=== PATIENT | male | born 1990 | race Caucasian/White ===

== ENCOUNTER 2020-02-01 17:17 | Outpatient (REF) | payer SELFPAY | END 2020-02-01 17:18 | disposition home or self-care (01) | LOC: HO.LAB 17:17 | PROVIDERS: Visit Provider Internal Medicine | DX: Z20.828 Contact with and (suspected) exposure to other viral communicable diseases (principal) | CPT/HCPCS: C9803; U0003 ==

== ENCOUNTER 2021-02-23 11:33 | Outpatient (REF) | payer OTHER, SELFPAY ==
[2021-02-23 13:07] LABS: COVID-19 Test Negative (Negative); IDNOW Serial# 55D5AD1C
== END 2021-02-23 11:34 | disposition home or self-care (01) ==
LOC: HO.LAB 11:33
PROVIDERS: Visit Provider Internal Medicine
DX: Z20.822 Contact with and (suspected) exposure to COVID-19 (principal)
CPT/HCPCS: 36415; 87635; C9803

== ENCOUNTER 2022-12-24 09:36 | Emergency (ER) | payer OTHER, SELFPAY ==
[2022-12-24 09:42] VITALS: BP 114/84; PULSE 78; RESP 18; TEMP 36.8; O2SAT 100; BMI 22.1
[2022-12-24 09:59] VITALS: BP 133/79; PULSE 82; RESP 16; TEMP 36.8; O2SAT 95
--- NOTE | 2022-12-24 10:06 | PC.NURSE ---
vss and up to date. medication and woodslamp placed bedside for provider to use. pt comes in today d/t getting foreign substance in eyes bilaterally during work exposure. 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 redness noted in eyes bilaterally. no swelling noted at this time. pt awaiting to be seen by provider.
--- NOTE | 2022-12-24 10:33 | ED_ITS ---
HPI - Eye Problem General Chief complaint: Eye Problems Stated complaint: L Eye Work Injury 12/23/22 Time Seen by Provider: 12/24/22 09:48 Source: patient Mode of arrival: ambulatory Limitations: no limitations History of Present Illness HPI Narrative: patient is a 32 old male who presents emergency department for evaluation after an eye injury. He states that while working yesterday was using a paint spray gun when he accidentally got some of the spray in to his eyes. He used an eye wash station immediately afterwards. He has a foreign body sensation to the left eye, and feels as though something is scratching it. Right eye feels dry but denies that foreign body sensation. He denies vision changes, discharge, inability to open the eye. He denies wearing contact lenses Related Data Previous Rx's Medication Instructions Recorded ofloxacin 0.3 % eye drops 2 drp ophthalmic (eye) QID 5 days 12/24/22 #5 mL Allergies Allergy/AdvReac Type Severity Reaction Status Date / Time No Known Allergies Allergy Verified 12/24/22 09:45 Review of Systems Review of Systems: Yes all other systems are reviewed and are negative [facility] Past Medical History Attestation statement: The following information was validated with the patient. Source: old records reviewed Social History Social History Advance Directives: No Advance Directives Information Provided: No Physical Exam Vital Signs: Vital Signs: Last Vital Signs Temp 98.2 F 12/24/22 09:59 Pulse 82 12/24/22 09:59 Resp 16 12/24/22 09:59 BP 133/79 12/24/22 09:59 Pulse Ox 95 12/24/22 09:59 O2 Del Method Room Air 12/24/22 09:59 BMI result Body Mass Index 22.1 Appearance: Alert.?Oriented to person, place and time. No acute distress.?N ormal affect. Eyes: Pupils equal, round and reactive to light.? EOMI. No nystagmus. Left eye with 1 cm fluorescein uptake at 06:00 o'clock, right eye with multiple pinpoint fluorescein uptake from 12:00 o'clock to 6:00 o'clock consistent with corneal abrasions Neck: Normal inspection.? Neck supple.?? CVS: Heart sounds normal. Normal heart rate and rhythm.? Pulses normal.?? Respiratory: No respiratory distress.? Lung sounds clear to auscultation bilaterally?? Skin: Skin warm and dry.? Normal skin color.? Neuro: Moves all extremities spontaneously. Ambulates with normal steady gait. Medical Decision Making Medical Decision Making MDM Narrative: patient is a 32-year-old male presents emergency department for evaluation after eye injury as per HPI. No significant impairment to visual acuity, 20/30 in the left, 20/25 in the right. Examination revealing fluorescein uptake consistent with corneal abrasions and a non contact lens wearer, sent prescript ion for ofloxacin eyedrops to pharmacy, advised outpatient follow-up with workmen's Comp as this is a work related injury, advised he should have re- evaluation by gambling monitor, provided with contact information for Dr. Son. Examination is not consistent with orbital or periorbital cellulitis, lower suspicion for scleritis or uveitis, negative Rivera sign, no hyphema, not consistent with globe rupture there is no penetrating injury. Reviewed worrisome signs and symptoms that would warrant re-evaluation in the emergency department. All questions answered. Stable for discharge. Differential Diagnosis Differential Diagnoses: The differential diagnosis associated with the presentation includes ( as noted above) Prescription Management I considered prescription management with: Antibiotic Discharge Plan Discharge Clinical Impression: Corneal abrasion Patient Disposition: Home, Self-Care Instructions: Corneal Abrasion (ED) Additional Instructions: I have sent a prescription for antibiotic eyedrops to your pharmacy please use 2 drops 4 times daily to both eyes for 5 days. Follow-up with workman's Comp /Ophthalmology as discussed. You may return back to the emergency department any new or worsening symptoms or concerns. Prescriptions: New ofloxacin 0.3 % drops 2 drp ophthalmic (eye) QID 5 Days Qty: 5 0RF Referrals: Luke Son [Physician] - Stand Alone Forms: Work/School Release
[2022-12-24] MEDS: Fluorescein Sodium STRIP 1 STRIP EYE-BOTH (10:54)
[2022-12-24] MEDS: Tetracaine HCl/PF 0.5% Oph Sol 4 ML DROPS 3 DROP EYE-BOTH (10:54)
--- NOTE | 2022-12-24 10:54 | PC.NURSE ---
medication administered by provider/eye assessment completed. woodslamp returned to proper place.
== END 2022-12-24 11:01 | disposition home or self-care (01) ==
PROVIDERS: Emergency Provider Emergency Medicine
DX: S05.02XA Injury of conjunctiva and corneal abrasion without foreign body, left eye, initial encounter (principal); X58.XXXA Exposure to other specified factors, initial encounter; Y93.9 Activity, unspecified; Y92.9 Unspecified place or not applicable; Y99.0 Civilian activity done for income or pay
CPT/HCPCS: 99283

== ENCOUNTER 2023-10-10 21:18 | Emergency (ER) | payer SELFPAY ==
--- NOTE | ~2023-10-10 | CT_ITS ---
EXAMINATION: CT cervical spine wo IV con, CT head/brain wo IV con CLINICAL INFORMATION: Reason for Exam neck trauma COMPARISON: None. TECHNIQUE: Contiguous axial imaging was performed from the skull base to vertex without intravenous contrast. Sagittal and coronal reformatted images were obtained. Additional CT skin of the cervical spine was performed without intravenous contrast. Coronal and sagittal reformations were provided. This CT examination was performed using dose optimization techniques as appropriate, variously including the following: * Automated exposure control * Adjustment of mA and/or kV according to patient size (this includes techniques or standardized protocols for targeted exams where dose is matched to indication/reason for exam; i.e. extremities or head) Use of iterative reconstruction technique DLP: 686+261 mGy-cm FINDINGS: CT HEAD: Trace hyperdensity along the posterior interhemispheric falx is favored to be within normal limits. No definite acute intracranial hemorrhage.No mass-effect or ventricular shift is noted. No acute, territorial loss of stratton-white differentiation. The ventricles and sulci are appropriate in size and configuration for the patient's stated age. No depressed calvarial fracture. The paranasal sinuses are well-aerated. The mastoid air cells are clear. CT CERVICAL SPINE: Straightening of the normal cervical lordosis. No significant spondylolisthesis. Cervical vertebral body heights are maintained. No prevertebral soft tissue swelling. Mild degenerative changes of the cervical spine. Trace paraseptal and edematous changes of the lung apices. CT/CT cervical spine wo IV con IMPRESSION: No definite acute intracranial hemorrhage. No acute, displaced cervical spine fracture.
--- NOTE | ~2023-10-10 | CT_ITS ---
EXAMINATION: CT cervical spine wo IV con, CT head/brain wo IV con CLINICAL INFORMATION: Reason for Exam neck trauma COMPARISON: None. TECHNIQUE: Contiguous axial imaging was performed from the skull base to vertex without intravenous contrast. Sagittal and coronal reformatted images were obtained. Additional CT skin of the cervical spine was performed without intravenous contrast. Coronal and sagittal reformations were provided. This CT examination was performed using dose optimization techniques as appropriate, variously including the following: * Automated exposure control * Adjustment of mA and/or kV according to patient size (this includes techniques or standardized protocols for targeted exams where dose is matched to indication/reason for exam; i.e. extremities or head) Use of iterative reconstruction technique DLP: 686+261 mGy-cm FINDINGS: CT HEAD: Trace hyperdensity along the posterior interhemispheric falx is favored to be within normal limits. No definite acute intracranial hemorrhage.No mass-effect or ventricular shift is noted. No acute, territorial loss of stratton-white differentiation. The ventricles and sulci are appropriate in size and configuration for the patient's stated age. No depressed calvarial fracture. The paranasal sinuses are well-aerated. The mastoid air cells are clear. CT CERVICAL SPINE: Straightening of the normal cervical lordosis. No significant spondylolisthesis. Cervical vertebral body heights are maintained. No prevertebral soft tissue swelling. Mild degenerative changes of the cervical spine. Trace paraseptal and edematous changes of the lung apices. CT/CT head/brain wo IV con IMPRESSION: No definite acute intracranial hemorrhage. No acute, displaced cervical spine fracture.
[2023-10-10 22:02] VITALS: BP 129/76; PULSE 65; RESP 16; TEMP 36.4; O2SAT 99; BMI 23.2
[2023-10-10 23:20] VITALS: BP 115/64; PULSE 70; RESP 18; TEMP 36.3; O2SAT 99
--- NOTE | 2023-10-10 23:24 | ED_ITS ---
HPI - Head Injury General Chief complaint: Neck Pain/Injury Stated complaint: head/neck injury (at work) Time Seen by Provider: 10/10/23 22:22 Source: patient Mode of arrival: ambulatory Limitations: no limitations History of Present Illness ED Provider: AC LOWERY Narrative: 33 yo male healthy not on thinners here with c/o being at work using safety helmet but a water pipe hit the back of his head that was about 2 to 3 feet away he denies LOC but he has a headache and is nauseated. He has neck pain as well. He denies prior head injury. He has not vomited. Complaint: head injury Onset (ago): hour(s) (11pm) Arrival Conditions: C-spine immobilization present Mechanism of Injury: work related injury Place: work Loss of Consciousness: no Location of injury: occipital Severity: moderate Quality: dull and aching Radiation: neck Other Injuries: neck Associated symptoms: denies other symptoms Related Data Previous Rx's ?Medication ?Instructions ?Recorded ofloxacin 0.3 % eye drops 2 drp ophthalmic (eye) QID 5 days 12/24/22 #5 mL cyclobenzaprine 10 mg tablet 10 mg PO TID PRN muscle spasm #20 10/11/23 tabs ondansetron 4 mg disintegrating 4 mg PO Q8H PRN nausea and 10/11/23 tablet vomiting #20 tabs Allergies Allergy/AdvReac Type Severity Reaction Status Date / Time No Known Allergies Allergy Verified 10/10/23 22:02 Review of Systems Review of Systems: Constitutional : No Fever, No Chills, No Fatigue ENT/Mouth : No sore throat, No Rhinorrhea Eyes: No Eye Pain, No Swelling, No Redness Cardiovascular : No Chest Pain, No SOB, No Dyspnea on Exertion Respiratory : No Cough, No Sputum Gastrointestinal : No Nausea, No Vomiting, No Diarrhea, No abdominal Pain Genitourinary : No Dysuria, No Urinary Frequency, No Hematuria, Musculoskeletal : No joint pain, No Myalgias, No Joint Swelling, pos neck pain Skin : No Skin Lesions, No rash Neuro : No Weakness, No Numbness, No Dizziness, positive Headache Psych : No Anxiety/Panic, No Depression All other systems reviewed and are negative [facility] Past Medical History Attestation statement: The following information was validated with the patient. Source: old records reviewed Medical History No pertinent past medical history Social History Social History (Updated 10/10/23 @ 23:31 by Aminta Corona DO) Patient Tobacco Use Status: Never used Tobacco Advance Directives: No Advance Directives Information Provided: Yes Physical Exam Vital Signs: Vital Signs: Last Vital Signs Temp 97.4 F 10/10/23 23:20 Pulse 70 10/10/23 23:20 Resp 18 10/10/23 23:20 BP 115/64 10/10/23 23:20 Pulse Ox 99 10/10/23 23:20 O2 Del Method Room Air 10/10/23 23:20 BMI result Body Mass Index 23.2 Appearance: Alert. Oriented X3. No acute distress. Eyes: Pupils equal, round and reactive to light. ENT: Pharynx normal. head contusion posterior scalp no wound noted Neck: ttp along posterior midline CVS: Normal heart rate and rhythm. Pulses normal. Respiratory: No respiratory distress. Breath sounds normal. Abdomen: Soft and nontender. Skin: Skin warm and dry. Normal skin color. Normal skin turgor. Extremities: No lower extremity edema. No calf ttp Neuro: Oriented X 3. No motor deficit. No sensory deficit. Medications Administered Discontinued Medications Generic Name Dose Route Start Last Admin Trade Name Freq PRN Reason Stop Dose Admin Acetaminophen 975 mg 10/10/23 23:52 10/11/23 00:13 Acetaminophen 325 Mg Tablet PO 10/10/23 23:53 975 mg ONCE ONE Administration Cyclobenzaprine HCl 10 mg 10/11/23 01:13 10/11/23 01:28 Cyclobenzaprine Hcl 10 Mg Tablet PO 10/11/23 01:14 10 mg ONCE ONE Administration Ondansetron HCl 4 mg 10/10/23 23:52 10/11/23 00:13 Ondansetron Odt 4 Mg Tab.Rapdis TRANSLINGU 10/10/23 23:53 4 mg ONCE ONE Administration Medical Decision Making Medical Decision Making MDM Narrative: 33 yo male with no PMH not on thinners here with head and neck pain after trauma at work at this time will need CT head and cspine imaging collar placed in triage. No LOC he is GCS 15 NV intact in UE at this time Differential Diagnosis Differential Diagnoses: The differential diagnosis associated with the presentation includes head injury, ICH, neck trauma Admission/Observation Consideration of admission/observation: Escalation of care including admission/observation considered patient does not want to stay until AM for repeat imaging given initial CT head read - plan to DC home at this time will follow up in AM here Lab Data MDM Lab Attestation statement: I reviewed the patient's lab results. Independent Interpretation I performed an independent interpretation of an: CT Scan Radiology Impression Discussion of test interpretation with radiology: I have reviewed the radiologist's reading. Discharge Plan Discharge Clinical Impression: Whiplash injury to neck Qualifiers: Encounter type: initial encounter Qualified Code(s): S13.4XXA - Sprain of ligaments of cervical spine, initial encounter Concussion Qualifiers: Encounter type: initial encounter Loss of consciousness presence/duration: without LOC Qualified Code(s): S06.0X0A - Concussion without loss of conscious ness, initial encounter Patient Disposition: Home, Self-Care Instructions: Concussion (ED), Cervical Sprain (ED) Additional Instructions: return immediately for vomiting, confusion, severe headache initial CT scan showed small area suspected to be congenital but given symptoms we want to repeat CT scan please return in morning as discussed for repeat imaging Prescriptions: New cyclobenzaprine 10 mg tablet 10 mg PO TID PRN (Reason: muscle spasm) Qty: 20 0RF ondansetron 4 mg tablet,disintegrating 4 mg PO Q8H PRN (Reason: nausea and vomiting) Qty: 20 0RF No Action ofloxacin 0.3 % drops 2 drp ophthalmic (eye) QID 5 Days Qty: 5 0RF Stand Alone Forms: Work/School Release Print Language: Luxembourgish
[2023-10-11] MEDS: Ondansetron ODT 4 MG TAB.RAPDIS TRANSLINGU (00:13)
[2023-10-11] MEDS: Acetaminophen 325 MG TABLET 975 MG PO (00:13)
[2023-10-11] MEDS: Cyclobenzaprine HCl 10 MG TABLET PO (01:28)
[2023-10-11 01:42] VITALS: BP 121/67; PULSE 63; RESP 20; TEMP 36.8; O2SAT 100
[2023-10-11 01:45] VITALS: BP 121/67; PULSE 63; RESP 20; TEMP 36.8; O2SAT 100
== END 2023-10-11 01:46 | disposition home or self-care (01) ==
PROVIDERS: Emergency Provider Emergency Medicine
DX: S06.0X0A Concussion without loss of consciousness, initial encounter (principal); S13.4XXA Sprain of ligaments of cervical spine, initial encounter; W22.8XXA Striking against or struck by other objects, initial encounter; Y93.89 Activity, other specified; Y92.59 Other trade areas as the place of occurrence of the external cause; Y99.0 Civilian activity done for income or pay
CPT/HCPCS: 70450; 72125; 99284

== ENCOUNTER 2023-10-11 09:01 | Emergency (ER) | payer SELFPAY ==
--- NOTE | ~2023-10-11 | CT_ITS ---
EXAMINATION: CT HEAD WITHOUT CONTRAST CLINICAL INFORMATION: Repeat exam from prior day,? Congenital abnormality. COMPARISON: Prior day at 10:07 PM, for head trauma. TECHNIQUE: Contiguous axial imaging was performed from the skull base to vertex without intravenous administration of contrast. This CT examination was performed using dose optimization techniques as appropriate, variously including the following: *Automated exposure control *Adjustment of mA and/or kV according to patient size (this includes techniques or standardized protocols for targeted exams where dose is matched to indication/reason for exam; i.e. extremities or head) *Use of iterative reconstruction technique DLP: 665 mGy-cm FINDINGS: There is no evidence of intracranial hemorrhage or extra-axial fluid collection. There is no mass effect, or edema. No CT evidence of acute territorial infarct. Ventricles, sulci, and cisterns are normal in size and configuration for patient age. No hydrocephalus. No midline shift. Minimal hyperdensity of the posterior falx is again noted, unchanged, and likely presents normal variant of an accessory posterior falcine venous sinus. No significant white matter abnormalities. The sella appears normal. Midline structures are normally formed. Cerebellar tonsils are appropriately located. Globes and orbital contents image normally. Extracranial soft tissues demonstrate prominent adenoidal tissues, likely reactive. No additional findings. The paranasal sinuses, mastoid air cells, and tympanic cavities are normally aerated. No suspicious bony abnormalities. CT/CT head/brain wo IV con IMPRESSION: 1. No acute intracranial abnormality. No significant change in the exam from prior day.
[2023-10-11 09:12] VITALS: BP 119/78; PULSE 66; RESP 16; TEMP 37; O2SAT 99; BMI 22.1
[2023-10-11] MEDS: Acetaminophen 325 MG TABLET 975 MG PO (09:44)
--- NOTE | 2023-10-11 09:51 | ED_ITS ---
HPI - Head Injury General Chief complaint: Head Injury Stated complaint: Seen yesterday - returning for CAT scan Time Seen by Provider: 10/11/23 09:16 Source: patient, RN notes reviewed and old records reviewed Mode of arrival: ambulatory Limitations: no limitations History of Present Illness ED Provider: ENRIQUE ARIAS PA-C HPI Narrative: 33 year old healthy male presents to the ED today requesting repeat head CT scan following head injury 3 days ago. Patient reports that while at work a water pipe rolled off of a trailer above him and struck him on the top of his head while he was wearing a safety helmet. Reports immediate nausea and dizziness. No LOC. Not on AC. Reports completing his shift that day. The following morning reports waking up with a headache and neck pain, prompting him to come to the ED for further evaluation. Upon arrival to ED yesterday, patient placed in c collar. Negative c spine CT however was advised to stay over night for repeat head CT in am d/t congenital vs acute findings. Patient declined to stay over night and agreed to come back this morning for repeat scan. At present he endorses slight headache. He has not taken any medications at home for this. Denies dizziness, vision changes, nausea, vomiting, neck or back pain. Related Data Previous Rx's ?Medication ?Instructions ?Recorded ofloxacin 0.3 % eye drops 2 drp ophthalmic (eye) QID 5 days 12/24/22 #5 mL cyclobenzaprine 10 mg tablet 10 mg PO TID PRN muscle spasm #20 10/11/23 tabs ondansetron 4 mg disintegrating 4 mg PO Q8H PRN nausea and 10/11/23 tablet vomiting #20 tabs Allergies Allergy/AdvReac Type Severity Reaction Status Date / Time No Known Allergies Allergy Verified 10/11/23 09:14 Review of Systems Review of Systems: Constitutional: No fever, chills, fatigue, night sweats, weight changes ENT/Mouth: No ear pain, hearing loss, nasal congestion, sinus pain, rhinorrhea, sore throat Eyes: No eye pain, swelling, redness, vision changes, discharge, photophobia Cardio: No chest pain, palpitations, BECERRA, orthopnea, peripheral edema Pulm: No SOB, cough, sputum, wheezing, dyspnea, hemoptysis GI: No nausea, vomiting, hematemesis, abdominal pain, diarrhea, constipation, hematochezia, melena : No irregular bleeding, dysuria, frequency, urgency, hesitancy, hematuria, flank pain, urinary flow changes, urinary incontinence or retention MSK: No back pain, neck pain, joint pain, myalgias Skin: No lesions, rashes Neuro: No weakness, numbness, paresthesias, LOC, dizziness, +headache Psych: No anxiety/panic, depression, SI/HI, AH/VH All other systems reviewed and are negative. [facility] Past Medical History Attestation statement: The following information was validated with the patient. Source: old records reviewed and nursing notes reviewed Medical History No pertinent past medical history Social History Social History Patient Tobacco Use Status: Never used Tobacco Advance Directives: No Advance Directives Information Provided: Yes Physical Exam Vital Signs: Vital Signs: Last Vital Signs Temp 98.0 F 10/11/23 12:00 Pulse 61 10/11/23 12:00 Resp 16 10/11/23 09:12 BP 111/80 10/11/23 12:00 Pulse Ox 98 10/11/23 12:00 O2 Del Method Room Air 10/11/23 12:00 BMI result Body Mass Index 22.1 Vital signs stable Const: General: cooperative, healthy appearing, comfortable and no acute distress Orientation/consciousness: patient oriented x3 Limitations: no limitations HEENT: Head: Yes normal to inspection, Yes No palpable skull fracture present, Yes normocephalic, Yes atraumatic, No scalp tenderness and No Temporal artery tenderness present Ears: hearing grossly normal bilaterally, external ears normal, TM's normal bilaterally, EAC's normal, mastoids normal and no periauricular adenopathy Face and sinus: Yes normal facial exam and Yes sinuses nontender Mouth: Normal oral and palatal mucosa present and moist mucous membranes Eyes: General: appearance normal, both eyes and all related structures Conjunctivae: conjunctivae normal Sclerae: sclerae normal Pupils: Equal, round and reactive pupils present Direct Ophthalmoscopy: normal light reflex, no photophobia, no papilledema and fundi normal bilaterally Neck: Other: No midline cervical spinous tenderness or step off deformity. FROM intact. Neck: Yes normal visual inspection, Yes no lymphadenopathy and Yes no meningeal signs Resp: Effort & Inspection: normal respiratory effort and able to speak in complete sentences Auscultation: clear to auscultation bilaterally Cardio: Rate: regular rate Rhythm: regular rhythm Back/Spine/Pelvis: Other: No midline spinous tenderness or step off deformity. No paraspinal muscle tenderness. Skin: General skin exam: no rashes or lesions noted Neuro: Other: Strength 5/5 intact throughout.?No saddle anesthesia.?Sensation intact to light touch.?Neurovascular intact distally.? General: patient oriented x3, gait normal, tone normal, no meningeal signs and no focal motor deficits Cranial nerves: Yes Equal, round and reactive pupils present Gait exam (Neuro): Normal gait present Motor exam (neuro): 5/5 motor strength present throughout and Pronator motor function not present Coordination: [id number] test normal, [id number] test normal, Romberg test negative and Normal rapid alternating movements of the distal upper extremity present (Neuro) Romberg Test: Negative Pupils: Normal pupillary reactivity/response: bilateral Extrem: General: Yes normal to inspection Course Course Course Narrative: 1415-- patient given Tylenol ED for headache. CT head/brain shows minimal hyperdensity of the posterior falx unchanged since yesterday and likely represents normal variant of an accessory posterior falcine venous sinus. There is no significant or acute abnormality noted. These findings were discussed with patient. Patient has remained stable throughout ED visit today. Discussed worrisome signs and symptoms and when to return to the ED. All questions answered at this time. Patient is agreeable with disposition and stable for discharge. Medications Administered Discontinued Medications Generic Name Dose Route Start Last Admin Trade Name Basimq PRN Reason Stop Dose Admin Acetaminophen 975 mg 10/11/23 09:40 10/11/23 09:44 Acetaminophen 325 Mg Tablet PO 10/11/23 09:41 975 mg ONCE ONE Administration Medical Decision Making Medical Decision Making MDM Narrative: 33 year old healthy male presents to the ED today requesting repeat head CT scan following head injury 3 days ago. VSS. He is nontoxic appearing and in NAD. Exam is nonfocal. Ambulating with steady gait. No midine cervical spinous tenderness. This patient presents with a headache most consistent with concussion.? No headache red flags. Neurologic exam without evidence of meningismus. No focal neurologic findings. Presentation not consistent with acute intracranial bleed including SAH (lack of risk factors, headache history). Presentation not consistent with acute [employer] infection including meningitis or brain abscess. Temporal arteritis unlikely, as is acute angle closure glaucoma given history and physical findings. Presentation not consistent with other acute, emergent causes of headache at this time. Plan to treat symptomatically with pain medication. No indication for LP at this time. Plan: pain medication, CT brain, reassessment Differential Diagnosis Differential Diagnoses: The differential diagnosis associated with the presentation includes As above Admission/Observation Not indicated Lab Data MDM Lab Attestation statement: I reviewed the patient's lab results. As above Independent Interpretation I performed an independent interpretation of an: CT Scan Interpretation: CT head/brain without acute bleed, agree with radiologist's interpretation. Radiology Impression Discussion of test interpretation with radiology: I have reviewed the radiologist's reading. Radiologist Impression: EXAMINATION: CT HEAD WITHOUT CONTRAST CLINICAL INFORMATION: Repeat exam from prior day,? Congenital abnormality. COMPARISON: Prior day at 10:07 PM, for head trauma. TECHNIQUE: Contiguous axial imaging was performed from the skull base to vertex without intravenous administration of contrast. This CT examination was performed using dose optimization techniques as appropriate, variously including the following: *Automated exposure control *Adjustment of mA and/or kV according to patient size (this includes techniques or standardized protocols for targeted exams where dose is matched to indication/reason for exam; i.e. extremities or head) *Use of iterative reconstruction technique DLP: 665 mGy-cm FINDINGS: There is no evidence of intracranial hemorrhage or extra-axial fluid collection. There is no mass effect, or edema. No CT evidence of acute territorial infarct. Ventricles, sulci, and cisterns are normal in size and configuration for patient age. No hydrocephalus. No midline shift. Minimal hyperdensity of the posterior falx is again noted, unchanged, and likely presents normal variant of an accessory posterior falcine venous sinus. No significant white matter abnormalities. The sella appears normal. Midline structures are normally formed. Cerebellar tonsils are appropriately located. Globes and orbital contents image normally. Extracranial soft tissues demonstrate prominent adenoidal tissues, likely reactive. No additional findings. The paranasal sinuses, mastoid air cells, and tympanic cavities are normally aerated. No suspicious bony abnormalities. CT/CT head/brain wo IV con IMPRESSION: 1. No acute intracranial abnormality. No significant change in the exam from prior day. External Record Review External record reviewed: Inpatient record and Office record Prescription Management I considered prescription management with: Pain Medication Social Determinants Patient?s care significantly limited by Social Determinants of Health including: Other Social Determinant of Health Critical Care Time Critical Care Time Critical Care Time: No Discharge Plan Discharge Clinical Impression: Concussion Qualifiers: Encounter type: initial encounter Loss of consciousness presence/duration: with out LOC Qualified Code(s): S06.0X0A - Concussion without loss of consciousness, initial encounter Patient Disposition: Home, Self-Care Instructions: Concussion (ED) Additional Instructions: The CT of your head is unchanged since yesterday. Return immediately for vomiting, confusion, or severe headache. Continue home medications. Prescriptions: No Action ofloxacin 0.3 % drops 2 drp ophthalmic (eye) QID 5 Days Qty: 5 0RF cyclobenzaprine 10 mg tablet 10 mg PO TID PRN (Reason: muscle spasm) Qty: 20 0RF ondansetron 4 mg tablet,disintegrating 4 mg PO Q8H PRN (Reason: nausea and vomiting) Qty: 20 0RF Stand Alone Forms: Work/School Release Discharge Date/Time: 10/11/23 16:20 Print Language: Georgian
[2023-10-11 12:00] VITALS: BP 111/80; PULSE 61; TEMP 36.7; O2SAT 98
--- NOTE | 2023-10-11 14:12 | PC.NURSE ---
patient awaiting ct scan results, patient given snack, tolerated po. alert and oriented, ambulating steady gait
[2023-10-11 16:20] VITALS: BP 132/90; PULSE 66; RESP 20; TEMP 36.1; O2SAT 100
== END 2023-10-11 16:20 | disposition home or self-care (01) ==
PROVIDERS: Emergency Provider Emergency Medicine
DX: S06.0X0A Concussion without loss of consciousness, initial encounter (principal); R51.9 Headache, unspecified; Y29.XXXA Contact with blunt object, undetermined intent, initial encounter; Y93.89 Activity, other specified; Y92.89 Other specified places as the place of occurrence of the external cause; Y99.0 Civilian activity done for income or pay
CPT/HCPCS: 70450; 99284

== ENCOUNTER → 2023-10-11 09:17 | Outpatient (BNV) | payer SELFPAY | PROVIDERS: Emergency Provider Emergency Medicine; Visit Provider Radiology Diagnostic Radiology | DX: S19.9XXA Unspecified injury of neck, initial encounter (principal) | CPT/HCPCS: 70450 ==

== ENCOUNTER 2024-06-03 16:25 | Emergency (ER) | payer OTHER, SELFPAY ==
--- NOTE | 2024-06-03 16:34 | ED.GENADULT ---
HPI - General Adult General Chief complaint: Dental/Oral Stated complaint: left top tooth infection Time Seen by Provider: 06/03/24 16:37 Source: patient, RN notes reviewed and old records reviewed Mode of arrival: ambulatory Limitations: no limitations History of Present Illness ED Provider: Eligio LOWERY narrative: Patient is a 34-year-old male presenting to the ED with complaint of left upper dental pain for the past 2 weeks. Does not currently have a dentist. Denies fevers, difficulty swallowing. Reports foul taste in mouth. MD complaint: dental pain Onset (ago): week(s) Location: mouth Radiation: non-radiation Severity: severe Quality: aching Pain Consistency: constant Treatments prior to arrival: NSAID Related Data Previous Rx's ?Medication ?Instructions ?Recorded ofloxacin 0.3 % eye drops 2 drp ophthalmic (eye) QID 5 days 12/24/22 #5 mL cyclobenzaprine 10 mg tablet 10 mg PO TID PRN muscle spasm #20 10/11/23 tabs ondansetron 4 mg disintegrating 4 mg PO Q8H PRN nausea and 10/11/23 tablet vomiting #20 tabs amoxicillin 875 mg-potassium 1 tab PO BID #20 tabs 06/03/24 clavulanate 125 mg tablet chlorhexidine gluconate 0.12 % 15 ml buccal BID 10 days #1,893 mL 06/03/24 mouthwash morphine 15 mg immediate release 15 mg PO Q8H PRN severe mush #8 06/03/24 tablet tabs Allergies Allergy/AdvReac Type Severity Reaction Status Date / Time No Known Allergies Allergy Verified 06/03/24 16:37 Review of Systems Review of Systems: as per hpi Yes all other systems are reviewed and are negative Constitutional: Constitutional: Reports as per HPI PMFSH Past Medical History Medical History No pertinent past medical history Social History Social History Patient Tobacco Use Status: Never used Tobacco Physical Exam ED Vital Signs: Vital signs have been reviewed and appear to be correct. Blood pressure normal. Heart rate normal. Respiratory rate normal. Temperature normal. Oxygen saturation normal. Const General: cooperative, healthy appearing and no acute distress Orientation/consciousness: oriented to person, oriented to place, oriented to time and patient oriented x3 Limitations: no limitations HENAK Head: Yes normocephalic and Yes atraumatic Ears: external ears normal General nose exam: Normal external nose present Face and sinus: Yes face symmetric Mouth: Normal oral and palatal mucosa present, lip normal, tongue normal, oropharynx normal, moist mucous membranes, no audible dysphonia, no drooling and no trismus Teeth and gingiva: abnormal tooth and associated gingiva upper left and caries Teeth image: 1. decay at base of tooth, tenderness to palpation, no visible abscess but gingival erythema noted Throat: Yes posterior oropharynx normal, Yes uvula midline and No uvular edema Eyes Pupils: Equal, round and reactive pupils present Neck Neck: Yes normal visual inspection and Yes supple Resp Effort & Inspection: normal respiratory effort and able to speak in complete sentences Auscultation: clear to auscultation bilaterally Cardio Rate: regular rate Rhythm: regular rhythm Heart sounds: S1 normal heart sound present and S2 normal heart sound present GI Palpation (GI): Soft to palpation and nontender Auscultation: normoactive bowel sounds General: Yes no CVA tenderness Back/Spine/Pelvis Back: no CVA tenderness Skin General skin exam: elasticity normal and turgor normal Neuro General: oriented to person, oriented to place, oriented to time, patient oriented x3, moves all extremities, no focal motor deficits and CN's II-XI intact bilaterally Cranial nerves: Yes Equal, round and reactive pupils present Cognition (Neuro): normal cognition Extrem General: Yes full ROM, Yes no pedal edema and Yes no calf tenderness Psych Mental Status: mental status grossly normal Affect: normal affect Thought process: Normal thought process present Medical Decision Making Medical Decision Making MDM Narrative: Patient is a 34-year-old male presenting to the ED with complaint of left upper dental pain for the past 2 weeks. On exam patient is awake, A+Ox3, VS WNL, afebrile, normal neurological exam without focal deficits, physical exam findings as above. Given reported symptoms and physical exam findings, initial differential includes but is not limited to dental pain, dental infection, dental abscess. Do not suspect Elieser's angina. Will treat with course of Augmentin, chlorhexidine mouthwash, morphine for severe pain. Advised patient to use Tylenol and ibuprofen, gargle with warm salt water several times daily. Patient provided with list of dental clinics and instructed to call for an appointment as soon as possible. Return precautions discussed. Patient verbalized understanding of and agreement with plan. Differential Diagnosis Differential Diagnoses: The differential diagnosis associated with the presentation includes As per [facility] External Record Review External record reviewed: Inpatient record, Office record and Outpatient record Prescription Management I considered prescription management with: Pain Medication and Antibiotic Discharge Plan Discharge Clinical Impression: Dental infection Patient Disposition: Home, Self-Care Instructions: Dental Abscess (ED), Toothache (ED) Additional Instructions: You were evaluated in the emergency department today for complaint of dental pain. You are being treated for a dental infection with antibiotics. Please complete the full course of antibiotics as prescribed even if your symptoms improve. IT IS IMPORTANT THAT YOU FOLLOW UP WITH A DENTIST. We recommend that you take 600 mg of ibuprofen or 650 mg Tylenol every 6 hours as needed for pain. If necessary, you can alternate these medications every 3 hours. For example, at 9:00 a.m. take Tylenol, then at noon take ibuprofen, then at 3:00 p.m. take Tylenol, etc.. You are being prescribed a short course of morphine for severe pain. Do not take this medication with alcohol as it can cause excessive drowsiness. You were also being prescribed a mouthwash to use. Return to the emergency department if you develop worsening pain, swelling, difficulty swallowing, difficulty breathing, fever, or any other concerning symptoms. Call or visit any of the clinics below to establish care with a dentist: [facility] [address] [place] [address] [facility] [address] [facility], [address] Mick Cis[address] [place] [id number] [facility] [address] [place] [id number] [facility] [address] [place] [address] [place] [address] [place] [address] Prescriptions: New amoxicillin-pot clavulanate 875-125 mg tablet 1 tab PO BID Qty: 20 0RF morphine 15 mg tablet 15 mg PO Q8H PRN (Reason: severe mush) Qty: 8 0RF Rx Instructions: Partial Fill upon patient request. chlorhexidine gluconate 0.12 % mouthwash 15 ml buccal BID 10 Days Qty: 1893 0RF No Action ofloxacin 0.3 % drops 2 drp ophthalmic (eye) QID 5 Days Qty: 5 0RF cyclobenzaprine 10 mg tablet 10 mg PO TID PRN (Reason: muscle spasm) Qty: 20 0RF ondansetron 4 mg tablet,disintegrating 4 mg PO Q8H PRN (Reason: nausea and vomiting) Qty: 20 0RF Stand Alone Forms: Work/School Release Print Language: Italian
[2024-06-03 16:36] VITALS: BP 134/98; PULSE 79; RESP 15; TEMP 36.6; O2SAT 98; BMI 22.1
[2024-06-03 16:47] VITALS: BP 134/98; PULSE 79; RESP 15; TEMP 36.6; O2SAT 98
== END 2024-06-03 16:47 | disposition home or self-care (01) ==
PROVIDERS: Emergency Provider Emergency Medicine Emergency Medical Services
DX: K04.7 Periapical abscess without sinus (principal); K08.89 Other specified disorders of teeth and supporting structures
CPT/HCPCS: 99282; 99283